=== PATIENT | male | born 1975 | race Caucasian/White ===

== ENCOUNTER 2019-04-14 15:54 | Emergency (ER) | payer BC ==
[~2019-04-14] VITALS: Ht 185.4 cm; Wt 170.1 kg
[2019-04-14] MEDS ORDERED: BUPROPION XL150 M1 PO (16:38)
[2019-04-14] MEDS ORDERED: LEVSOD125 PO (16:39)
[2019-04-14 16:46] LABS: Alanine Aminotransfer (ALT/SGP 59 U/L (12-78); Albumin, Blood 3.6 g/dL (3.4-5.0); Albumin/Globulin Ratio 0.9 (0.8-1.8); Alk Phos 73 U/L (50-136); Anion Gap 7 mmol/L (6-16); Aspartate Aminotrans (AST/SGOT 26 U/L (12-37); Bilirubin, Total 0.3 mg/dL (0.1-1.0); Blood Urea Nitrogen 14 mg/dL (8-24); Bun/Creatinine Ratio 17.3 (12.0-20.0); CO2, Blood 25 mmol/L (21-32); Chloride, Blood 109 mmol/L (98-108); Creatinine, Blood 0.81 mg/dL (0.60-1.20); Globulin, Blood 3.8 g/dL (2.2-4.0); Glomerular Filtration Rate >60 (60-); Glucose, Blood 110 mg/dL (70-99); Potassium, Blood 4.1 mmol/L (3.5-5.5); Sodium, Blood 141 mmol/L (136-145); Total Protein, Blood 7.4 g/dL (6.4-8.2)
[2019-04-14 16:47] LABS: BASOPHILS ABSOLUTE AUTO 0.06 K/mm3 (0.00-0.23); BASOPHILS PERCENT AUTO 1 % (0-2); EOSINOPHILS ABSOLUTE AUTO 0.23 K/mm3 (0.00-0.68); EOSINOPHILS PERCENT AUTO 3 % (0-6); Hematocrit 44.2 % (37.0-53.0); Hemoglobin 13.8 g/dL (13.5-17.5); IMMATURE GRAN ABSOLUTE AUTO 0.05 K/mm3 (0.00-0.10); IMMATURE GRAN PERCENT AUTO 1 % (0-1); LYMPHOCYTES ABSOLUTE AUTO 1.73 K/mm3 (0.84-5.20); LYMPHOCYTES PERCENT AUTO 20 % (21-46); MONOCYTES ABSOLUTE AUTO 0.87 K/mm3 (0.16-1.47); MONOCYTES PERCENT AUTO 10 % (4-13); Mean Corpuscular HGB 28.5 pg (26.0-34.0); Mean Corpuscular HGB Conc 31.2 g/dL (31.5-36.5); Mean Corpuscular Volume 91 fL (80-100); Mean Platelet Volume 9.4 fL (9.1-12.4); NEUTROPHILS ABSOLUTE AUTO 5.67 K/mm3 (1.96-9.15); NEUTROPHILS PERCENT AUTO 66 % (41-73); Platelet Count 322 K/mm3 (150-400); RDW Coefficient Variation 13.9 % (11.7-14.2); Red Blood Cell Count 4.84 M/mm3 (4.30-5.90); White Blood Cell Count 8.61 K/mm3 (4.00-11.30)
== END 2019-04-14 18:01 | disposition home or self-care (01) ==
LOC: ER 15:54
PROVIDERS: Physician Assistant
DX: R51 Headache (principal); M54.9 Dorsalgia, unspecified; G89.29 Other chronic pain; E66.01 Morbid (severe) obesity due to excess calories; Z68.42 Body mass index [BMI] 45.0-49.9, adult; F17.210 Nicotine dependence, cigarettes, uncomplicated
CPT/HCPCS: 70450; 80053; 85025; 96374; 96375; 99284-25; J0780; J1170; J1200; J1885

== ENCOUNTER → 2020-03-13 | Outpatient (CLI) | payer BC ==
[~2020-03-13] MED LIST: BUPROPION XL150 M1 PO; DESVENLAFAXINE100 M3 PO; LAMICTAL200 MG PO; LEVSOD125 PO; LISINOPRIL2.5 MG PO; LITHIUM CARBON300 M5 PO; METFORMIN HCL500 M3 PO; NAPR220 PO; OMEP20ER PO; Synthroid300 MCG PO
== END | disposition home or self-care (01) ==
LOC: LAB SHORT 09:00 → LAB 09:00 → LAB FUT 03-10 15:35
DX: R10.13 Epigastric pain (principal)
CPT/HCPCS: 87338

== ENCOUNTER 2020-03-25 14:33 | Inpatient (IN) | payer BC ==
[~2020-03-25] VITALS: Ht 185.4 cm; Wt 168.8 kg
[2020-03-25 15:23] LABS: BASOPHILS ABSOLUTE AUTO 0.18 K/mm3 (0.00-0.23); BASOPHILS PERCENT AUTO 1 % (0-2); EOSINOPHILS ABSOLUTE AUTO 0.89 K/mm3 (0.00-0.68); EOSINOPHILS PERCENT AUTO 6 % (0-6); Hematocrit 43.1 % (37.0-53.0); Hemoglobin 13.5 g/dL (13.5-17.5); IMMATURE GRAN ABSOLUTE AUTO 0.92 K/mm3 (0.00-0.10); IMMATURE GRAN PERCENT AUTO 6 % (0-1); LYMPHOCYTES PERCENT AUTO 11 % (21-46); MONOCYTES ABSOLUTE AUTO 1.12 K/mm3 (0.16-1.47); MONOCYTES PERCENT AUTO 7 % (4-13); Mean Corpuscular HGB 27.5 pg (26.0-34.0); Mean Corpuscular HGB Conc 31.3 g/dL (31.5-36.5); Mean Corpuscular Volume 88 fL (80-100); NEUTROPHILS PERCENT AUTO 69 % (41-73); RDW Coefficient Variation 14.3 % (11.7-14.2); RDW Standard Deviation 45.9 fL (35.1-46.3); Red Blood Cell Count 4.91 M/mm3 (4.30-5.90); White Blood Cell Count 15.31 K/mm3 (4.00-11.30)
[2020-03-25 15:44] LABS: Mean Platelet Volume 9.4 fL (9.1-12.4); Platelet Count 438 K/mm3 (150-400)
[2020-03-25 16:12] LABS: Alanine Aminotransfer (ALT/SGP 39 U/L (12-78); Albumin, Blood 2.3 g/dL (3.4-5.0); Albumin/Globulin Ratio 0.5 (0.8-1.8); Alk Phos 88 U/L (50-136); Anion Gap 5 mmol/L (6-16); Aspartate Aminotrans (AST/SGOT 28 U/L (12-37); Bilirubin, Total 0.3 mg/dL (0.1-1.0); Blood Urea Nitrogen 9 mg/dL (8-24); Bun/Creatinine Ratio 12.5 (12.0-20.0); CO2, Blood 29 mmol/L (21-32); Calcium, Blood 8.7 mg/dL (8.5-10.1); Chloride, Blood 106 mmol/L (98-108); Creatinine, Blood 0.72 mg/dL (0.60-1.20); Globulin, Blood 4.6 g/dL (2.2-4.0); Glomerular Filtration Rate >60 (60-); Glucose, Blood 142 mg/dL (70-99); Potassium, Blood 3.6 mmol/L (3.5-5.5); Sodium, Blood 140 mmol/L (136-145); Total Protein, Blood 6.9 g/dL (6.4-8.2)
--- NOTE | 2020-03-26 00:45 | NUR ---
REPORT RECEIVED FROM MAYRAED RN. PT TRANSPORTED TO MEDICAL FLOOR VIA GURNEY, AMBULATED SELF TO BED, NO S/S ACUTE DISTRESS NOTED. RESPS E/U. ORIENTED TO ROOM AND UNIT. PT DENIES NEEDS AT THIS TIME. CALL LIGHT, POSSESSIONS IN REACH, WCTM.
--- NOTE | 2020-03-26 07:10 | NUR ---
SHIFT SUMMARY PT RESTING COMFORTABLY, NO S/S ACUTE DISTRESS NOTED. WAS MONITORED EVERY 1-2 HOURS WITH NEEDS MET. VS REVIEWED, WNL. PT DENIES N/V, ABD PAIN, BUT REPORTS BACK PAIN. MEDICATED PER EMAR WITH EFFECTIVE RELIEF. TOLERATED CLEAR LIQUID DIET WELL. INDEPENDENT IN ROOM, AMBULATES HALLS PERIODICALLY. DENIES NEEDS AT THIS TIME. CALL LIGHT, POSSESSIONS IN REACH, REPORT GIVEN TO DARREL MARCELO.
--- NOTE | 2020-03-26 16:50 | NUR ---
PT HAS COMPLAINED OF PAIN TO ABDOMEN USUALLY AFTER MEALS. MEDICATED PER EMAR. PT TO HAVE CLEAR LIQUIDS AT THIS TIME. NO ACUTE CHAGNES. CALL LIGHT WITHIN REACH.
--- NOTE | 2020-03-26 23:24 | NUR ---
03/26/200 Pt came out in [facility] and c/o severe abdOMINAL PAIN,NAUSEA, AND "SCARED TO ". CONTINOUS PULSE OX REAPPLIED AND HR= 86 WITH O2 SAT= 95%. C/O "MY HEART FEELS LIKE IT'S RACING". RN REASSURED PT AND SHOWN HIM THE PULSE OX. READINGS. TOO SOON FOR MORE PAIN MEDS. RN PAGED CHAINSTITCH TUNNEL ELASTIC OPERATOR MD ABOUT ABOVE EVENTS. DR ODELL CAME AND EVALUATED PT AT 2242. SEE ORDERS FOR MEDS AND SEE MAR FOR MEDS GIVEN. PT SITTING UP IN LOUNGE CHAIR. EARLIER PT HAD DRANK OVER 700 ML OF WATER "BECAUSE I WAS THIRSTY." RN ENCOURAGED PT NOT TO DRINK ANYTHING FOR AWHILE TO SEE IF HE FEELS BETTER. VITALS RECHECKED AFTER MEDS GIVEN. BP BETTER.
--- NOTE | 2020-03-27 01:19 | NUR ---
03/27/20 0110 RN CALLED FOR DIFF. PAIN MED ORDER. PAIN DOWN TO "2" AFTER MEDICATED WITH DILAUDID 2 MG IV FOR BACK PAIN.
--- NOTE | 2020-03-27 07:30 | NUR ---
03/27/20 0640 MEDICATED FOR BACK/ABDOMEN DISCOMFORT PER JUN. DENIES ANY NAUSEA. SITTING UP IN LOUNGE CHAIR THIS AM READING. STATES HE GOT SOME SLEEP AFTER NEW PAIN MED WAS GIVEN EARLIER. SEE PREVIOUS NOTES. VITALS BETTER THIS AM.
[2020-03-27 08:16] LABS: BASOPHILS ABSOLUTE AUTO 0.09 K/mm3 (0.00-0.23); BASOPHILS PERCENT AUTO 0 % (0-2); EOSINOPHILS ABSOLUTE AUTO 0.69 K/mm3 (0.00-0.68); EOSINOPHILS PERCENT AUTO 3 % (0-6); Hematocrit 40.3 % (37.0-53.0); Hemoglobin 12.4 g/dL (13.5-17.5); IMMATURE GRAN ABSOLUTE AUTO 0.57 K/mm3 (0.00-0.10); IMMATURE GRAN PERCENT AUTO 3 % (0-1); LYMPHOCYTES ABSOLUTE AUTO 1.13 K/mm3 (0.84-5.20); LYMPHOCYTES PERCENT AUTO 6 % (21-46); MONOCYTES ABSOLUTE AUTO 1.17 K/mm3 (0.16-1.47); MONOCYTES PERCENT AUTO 6 % (4-13); Mean Corpuscular HGB 27.7 pg (26.0-34.0); Mean Corpuscular HGB Conc 30.8 g/dL (31.5-36.5); Mean Corpuscular Volume 90 fL (80-100); Mean Platelet Volume 8.8 fL (9.1-12.4); NEUTROPHILS ABSOLUTE AUTO 16.69 K/mm3 (1.96-9.15); NEUTROPHILS PERCENT AUTO 82 % (41-73); Platelet Count 414 K/mm3 (150-400); RDW Standard Deviation 47.1 fL (35.1-46.3); Red Blood Cell Count 4.47 M/mm3 (4.30-5.90); White Blood Cell Count 20.34 K/mm3 (4.00-11.30)
--- NOTE | 2020-03-27 17:45 | NUR ---
NO ACUTE CHANGES. PT IS NOW TOLERATING WATER AND ICE CHIPS. HE IS ALERT AND ORIENTED AND ABLE TO EXPRESS ANY NEEDS. PT SHOWERED THIS SHIFT. CALL LIGHT WITHIN REACH.
[2020-03-28 05:39] LABS: BASOPHILS PERCENT AUTO 1 % (0-2); EOSINOPHILS ABSOLUTE AUTO 0.69 K/mm3 (0.00-0.68); EOSINOPHILS PERCENT AUTO 3 % (0-6); Hematocrit 43.6 % (37.0-53.0); Hemoglobin 13.3 g/dL (13.5-17.5); IMMATURE GRAN ABSOLUTE AUTO 0.46 K/mm3 (0.00-0.10); IMMATURE GRAN PERCENT AUTO 2 % (0-1); LYMPHOCYTES ABSOLUTE AUTO 1.24 K/mm3 (0.84-5.20); LYMPHOCYTES PERCENT AUTO 6 % (21-46); MONOCYTES PERCENT AUTO 5 % (4-13); Mean Corpuscular HGB 27.4 pg (26.0-34.0); Mean Corpuscular HGB Conc 30.5 g/dL (31.5-36.5); Mean Corpuscular Volume 90 fL (80-100); Mean Platelet Volume 8.7 fL (9.1-12.4); NEUTROPHILS PERCENT AUTO 83 % (41-73); Platelet Count 441 K/mm3 (150-400); RDW Standard Deviation 46.3 fL (35.1-46.3); Red Blood Cell Count 4.85 M/mm3 (4.30-5.90); White Blood Cell Count 20.99 K/mm3 (4.00-11.30)
--- NOTE | 2020-03-28 06:11 | NUR ---
SHIFT SUMMARY- PT. A&O, INDEP IN ROOM. C/O PAIN TO MID ABD 10/17, MEDICATED SEVERAL TIMES T/O THE NIGHT WITH GOOD EFFECT. PT. ON ICE CHIPS AND SIPS OF WATER, TOLERATING WELL. C/O OCCASIONAL DISCOMFORT/PAIN IF DRINKS TOO MUCH WATER. SLEPT ON/OFF DURING THE NIGHT, NO APPARENT DISTRESS NOTED. VSS. CALL LIGHT WITHIN REACH AND SIDE RAILS UPX2. WILL CONT TO MONITOR.
--- NOTE | 2020-03-28 19:16 | NUR ---
SHIFT SUMMARY- PT IS A/O, PLESANT AND COOPERATIVE. HE IS HAVING ABDOMINAL PAIN AND IS BEING TREATED PER MAR. HE WAS SWITCHED TO D5 NS. HE IS DRINKING FLUIDS AND REPORTS THAT HE IS EXPERIENCING PAIN WITH IT. HIS VISITED THIS AFTERNOON. HIS BED IS IN THE LOW POSITION AND CALL LIGHT IS WITHIN REACH.
--- NOTE | 2020-03-29 04:56 | NUR ---
SHIFT SUMMARY- NO ACUTE EVENTS OVERNIGHT. PT. C/O PAIN T/O THE NIGHT, MEDICATED SEVERAL TIMES THIS SHIFT WITH MINIMAL EFFECT. SLEPT ON/OFF DURING THE NIGHT, SPENT MOST OF THE NIGHT UP IN THE CHAIR. PT. ONLY DRINKING WATER AND ICE CHIPS AT THIS TIME, TOLERATING WELL. DENIED ANY OTHER NEEDS. CALL LIGHT WITHIN REACH AND SIDE RAILS UPX2. WILL CONT TO MONITOR.
[2020-03-29 04:57] LABS: BASOPHILS PERCENT AUTO 1 % (0-2); EOSINOPHILS ABSOLUTE AUTO 0.54 K/mm3 (0.00-0.68); EOSINOPHILS PERCENT AUTO 3 % (0-6); Hematocrit 42.3 % (37.0-53.0); Hemoglobin 12.8 g/dL (13.5-17.5); IMMATURE GRAN ABSOLUTE AUTO 0.35 K/mm3 (0.00-0.10); IMMATURE GRAN PERCENT AUTO 2 % (0-1); LYMPHOCYTES ABSOLUTE AUTO 1.31 K/mm3 (0.84-5.20); LYMPHOCYTES PERCENT AUTO 8 % (21-46); MONOCYTES ABSOLUTE AUTO 1.07 K/mm3 (0.16-1.47); MONOCYTES PERCENT AUTO 6 % (4-13); Mean Corpuscular HGB 27.6 pg (26.0-34.0); Mean Corpuscular HGB Conc 30.3 g/dL (31.5-36.5); Mean Corpuscular Volume 91 fL (80-100); NEUTROPHILS ABSOLUTE AUTO 14.04 K/mm3 (1.96-9.15); NEUTROPHILS PERCENT AUTO 81 % (41-73); Platelet Count 430 K/mm3 (150-400); RDW Coefficient Variation 14.1 % (11.7-14.2); RDW Standard Deviation 47.7 fL (35.1-46.3); Red Blood Cell Count 4.64 M/mm3 (4.30-5.90); White Blood Cell Count 17.41 K/mm3 (4.00-11.30)
[2020-03-29 05:23] LABS: Anion Gap 6 mmol/L (6-16); Blood Urea Nitrogen 4 mg/dL (8-24); Bun/Creatinine Ratio 5.6 (12.0-20.0); CO2, Blood 28 mmol/L (21-32); Calcium, Blood 8.9 mg/dL (8.5-10.1); Chloride, Blood 105 mmol/L (98-108); Creatinine, Blood 0.71 mg/dL (0.60-1.20); Glomerular Filtration Rate >60 (60-); Glucose, Blood 126 mg/dL (70-99); Potassium, Blood 3.7 mmol/L (3.5-5.5); Sodium, Blood 139 mmol/L (136-145)
--- NOTE | 2020-03-29 19:11 | NUR ---
SHIFT SUMMARY- PT IS A/O, PLESANT AND COOPERATIVE. HE IS ON WATER SIPS AND ICE CHIPS. HE IS REPORTING FEELING SOMEWHAT BETTER THAN YESTERDAY. HE IS RECIEVING PAIN MEDICATION NEEDED. HE SLEPT INTERMITENTLY THROUGHOUT THIS SHIFT. HIS WAS AT BEDSIDE. HE IS RECIEVING MEDICATIONS PRN DIARRHEA. HIS BED IS IN THE LOW POSITION AND CALL LIGHT IS WITHIN REACH.
[2020-03-30 04:42] LABS: BASOPHILS ABSOLUTE AUTO 0.08 K/mm3 (0.00-0.23); BASOPHILS PERCENT AUTO 1 % (0-2); EOSINOPHILS ABSOLUTE AUTO 0.51 K/mm3 (0.00-0.68); EOSINOPHILS PERCENT AUTO 3 % (0-6); Hematocrit 39.9 % (37.0-53.0); Hemoglobin 12.1 g/dL (13.5-17.5); IMMATURE GRAN ABSOLUTE AUTO 0.25 K/mm3 (0.00-0.10); IMMATURE GRAN PERCENT AUTO 2 % (0-1); LYMPHOCYTES ABSOLUTE AUTO 1.41 K/mm3 (0.84-5.20); LYMPHOCYTES PERCENT AUTO 9 % (21-46); MONOCYTES ABSOLUTE AUTO 1.04 K/mm3 (0.16-1.47); MONOCYTES PERCENT AUTO 7 % (4-13); Mean Corpuscular HGB 27.5 pg (26.0-34.0); Mean Corpuscular HGB Conc 30.3 g/dL (31.5-36.5); Mean Corpuscular Volume 91 fL (80-100); NEUTROPHILS ABSOLUTE AUTO 11.64 K/mm3 (1.96-9.15); NEUTROPHILS PERCENT AUTO 78 % (41-73); Platelet Count 451 K/mm3 (150-400); RDW Standard Deviation 47.5 fL (35.1-46.3); White Blood Cell Count 14.93 K/mm3 (4.00-11.30)
--- NOTE | 2020-03-30 05:49 | NUR ---
SHIFT SUMMARY- PT. PAINFUL DURING THE NIGHT, MEDICATED MULTIPLE TIMES THIS SHIFT FOR 7/10 PAIN. REPORTED SOME RELIEF. BP SLIGHTLY ELEVATED LAST NIGHT. TX'D WITH PRN HYDRALAZINE, NOTED IMPROVEMENT OF BP THIS AM. PT. RESTED QUIETLY DURING THE NIGHT, NO APPARENT DISTRESS NOTED. CONTS ON SIPS OF WATER AND ICE CHIPS. STATED WILL ATTEMPT CL TODAY. NO OTHER NEEDS AT THIS TIME. CALL LIGHT WITHIN REACH AND SIDE RAILS UPX2. WILL CONT TO MONITOR.
--- NOTE | 2020-03-30 18:38 | NUR ---
PT PAIN MEDS CHANGED FROM IV TO PO DILAUDID, DIET INCREASED FROM CHIPS AND SIPS TO CLEAR LIQUIDS. STILL C/O OF MOD ABD PAIN, PLAN IS TO BE DISCHARGED TOMORROW IF IMPROVEMENT CONTINUES. NO ACUTE CHANGES NOTED THIS SHIFT, WILL CONTINUE TO MONITOR AND REPORT TO ONCOMING RN.
--- NOTE | 2020-03-31 04:08 | NUR ---
SUMMARY PT REPORTED A EPISODE OF PAIN AND WAS TX PER EMAR. PT HAS BEEN SLEEPING T/O SHIFT. PT CURRENTLY SLEEPING AND BREATHING EASY. CALL LIGHT IN REACH.
[2020-03-31 05:24] LABS: BASOPHILS ABSOLUTE AUTO 0.09 K/mm3 (0.00-0.23); BASOPHILS PERCENT AUTO 1 % (0-2); EOSINOPHILS ABSOLUTE AUTO 0.62 K/mm3 (0.00-0.68); EOSINOPHILS PERCENT AUTO 5 % (0-6); Hematocrit 42.8 % (37.0-53.0); Hemoglobin 12.6 g/dL (13.5-17.5); IMMATURE GRAN ABSOLUTE AUTO 0.15 K/mm3 (0.00-0.10); IMMATURE GRAN PERCENT AUTO 1 % (0-1); LYMPHOCYTES ABSOLUTE AUTO 1.32 K/mm3 (0.84-5.20); LYMPHOCYTES PERCENT AUTO 11 % (21-46); MONOCYTES ABSOLUTE AUTO 0.94 K/mm3 (0.16-1.47); MONOCYTES PERCENT AUTO 8 % (4-13); Mean Corpuscular HGB 27.1 pg (26.0-34.0); Mean Corpuscular HGB Conc 29.4 g/dL (31.5-36.5); Mean Corpuscular Volume 92 fL (80-100); Mean Platelet Volume 9.6 fL (9.1-12.4); NEUTROPHILS ABSOLUTE AUTO 9.04 K/mm3 (1.96-9.15); NEUTROPHILS PERCENT AUTO 74 % (41-73); Platelet Count 409 K/mm3 (150-400); RDW Coefficient Variation 14.3 % (11.7-14.2); RDW Standard Deviation 48.1 fL (35.1-46.3); Red Blood Cell Count 4.65 M/mm3 (4.30-5.90); White Blood Cell Count 12.16 K/mm3 (4.00-11.30)
[2020-03-31] MEDS ORDERED: HYDMOR2 PO (11:08)
[2020-03-31] MEDS ORDERED: PROM25 PO (11:10)
[2020-03-31] MEDS ORDERED: LOPE2C PO (11:10)
--- NOTE | 2020-03-31 16:45 | NUR ---
DISCHARGE DISCHARGE INSTRUCTIONS, MEDICATION LIST AND FOLLOW UP APPOINTMENT REVIEWED WITH PT AND HIS SPOUSE. QUESTIONS/CONCERNS ANSWERED. BOTH VERBALLY INDICATED UNDERSTANDING OF ALL INSTRUCTIONS RECEIVED. ESCORTED OUT VIA W/C BY CHYNA
== END 2020-03-31 16:30 | disposition home or self-care (01) | DRG 439 ==
LOC: ER 14:33 → MEDS 14:34
PROVIDERS: Internal Medicine; Physician Assistant; ADMIT Internal Medicine
DX: K85.90 Acute pancreatitis without necrosis or infection, unspecified (principal); Z68.42 Body mass index [BMI] 45.0-49.9, adult; E66.2 Morbid (severe) obesity with alveolar hypoventilation; I10 Essential (primary) hypertension; E11.9 Type 2 diabetes mellitus without complications; K21.9 Gastro-esophageal reflux disease without esophagitis; F41.9 Anxiety disorder, unspecified; G47.00 Insomnia, unspecified; E89.0 Postprocedural hypothyroidism; F17.210 Nicotine dependence, cigarettes, uncomplicated
CPT/HCPCS: 36415; 71045; 74177; 80048; 80053; 82947; 83690; 85025; 93005; 93010; 94760; 94762; 96372; 96374-59; 96375; 96376; 99285-25; G0378; J1170; J1650; J2270; J2405; J3010; J7030; J7042; J7120; Q9967

== ENCOUNTER 2021-03-19 07:35 | Emergency (ER) | payer BC ==
[~2021-03-19] VITALS: Ht 185.4 cm; Wt 165.1 kg
[~2021-03-19 07:35] MED LIST changes: +HYDMOR2 PO; +LOPE2C PO; +PROM25 PO
[2021-03-19] MEDS ORDERED: VITAMIN D3-ALO1 EACH PO (08:09)
[2021-03-19] MEDS ORDERED: GLIM4 PO (08:09)
[2021-03-19] MEDS ORDERED: CYCL10 PO (08:10)
[2021-03-19] MEDS ORDERED: RISP2 (08:10)
[2021-03-19] MEDS ORDERED: SITA100T2 PO (08:10)
[2021-03-19 09:48] LABS: BASOPHILS ABSOLUTE AUTO 0.08 K/mm3 (0.00-0.23); BASOPHILS PERCENT AUTO 1 % (0-2); EOSINOPHILS ABSOLUTE AUTO 0.18 K/mm3 (0.00-0.68); EOSINOPHILS PERCENT AUTO 2 % (0-6); Hematocrit 44.2 % (37.0-53.0); Hemoglobin 13.8 g/dL (13.5-17.5); IMMATURE GRAN ABSOLUTE AUTO 0.05 K/mm3 (0.00-0.10); IMMATURE GRAN PERCENT AUTO 1 % (0-1); LYMPHOCYTES ABSOLUTE AUTO 1.34 K/mm3 (0.84-5.20); LYMPHOCYTES PERCENT AUTO 12 % (21-46); MONOCYTES ABSOLUTE AUTO 0.84 K/mm3 (0.16-1.47); MONOCYTES PERCENT AUTO 8 % (4-13); Mean Corpuscular HGB 27.5 pg (26.0-34.0); Mean Corpuscular HGB Conc 31.2 g/dL (31.5-36.5); Mean Corpuscular Volume 88 fL (80-100); Mean Platelet Volume 9.3 fL (9.1-12.4); NEUTROPHILS ABSOLUTE AUTO 8.38 K/mm3 (1.96-9.15); NEUTROPHILS PERCENT AUTO 77 % (41-73); Platelet Count 332 K/mm3 (150-400); RDW Standard Deviation 45.3 fL (35.1-46.3); Red Blood Cell Count 5.01 M/mm3 (4.30-5.90); White Blood Cell Count 10.87 K/mm3 (4.00-11.30)
[2021-03-19 10:03] LABS: Alanine Aminotransfer (ALT/SGP 40 U/L (12-78); Albumin, Blood 3.5 g/dL (3.4-5.0); Albumin/Globulin Ratio 0.9 (0.8-1.8); Alk Phos 70 U/L (50-136); Anion Gap 6 mmol/L (6-16); Aspartate Aminotrans (AST/SGOT 16 U/L (12-37); Bilirubin, Total 0.3 mg/dL (0.1-1.0); Blood Urea Nitrogen 13 mg/dL (8-24); Bun/Creatinine Ratio 18.5 (12.0-20.0); CO2, Blood 27 mmol/L (21-32); Calcium, Blood 9.9 mg/dL (8.5-10.1); Chloride, Blood 104 mmol/L (98-108); Glomerular Filtration Rate >60 (60-); Glucose, Blood 233 mg/dL (70-99); Potassium, Blood 4.1 mmol/L (3.5-5.5); Sodium, Blood 137 mmol/L (136-145); Total Protein, Blood 7.5 g/dL (6.4-8.2)
[2021-03-19] MEDS ORDERED: KETO10 PO (12:01)
[2021-03-19] MEDS ORDERED: DIBU30TO TOP (12:01)
== END 2021-03-19 12:06 | disposition home or self-care (01) ==
LOC: ER 07:35
PROVIDERS: Physician Assistant
DX: G54.4 Lumbosacral root disorders, not elsewhere classified (principal); K62.89 Other specified diseases of anus and rectum; E11.9 Type 2 diabetes mellitus without complications; I10 Essential (primary) hypertension; Z87.891 Personal history of nicotine dependence; Z88.1 Allergy status to other antibiotic agents; Z79.899 Other long term (current) drug therapy
CPT/HCPCS: 36415; 72192; 80053; 85025; 99283-25; A9270

== ENCOUNTER 2021-07-06 07:45 | Day surgery (SDC) | payer BC ==
[~2021-07-06] VITALS: Ht 185.4 cm; Wt 168.9 kg
[~2021-07-06 07:45] MED LIST changes: +CYCL10 PO; +DIBU30TO TOP; +GLIM4 PO; +KETO10 PO; +RISP2; +SITA100T2 PO; +VITAMIN D3-ALO1 EACH PO
--- NOTE | 2021-07-06 08:26 | NUR ---
07/06/21 0826 Brissa Miller TRY RIGHT HAND BLEW.
--- NOTE | 2021-07-06 09:14 | NUR ---
07/06/21 [address] RODRIGUEZ
== END 2021-07-06 09:54 | disposition home or self-care (01) ==
LOC: ORSCSDS 07:45
PROVIDERS: Student in an Organized Health Care Education/Training Program
PROC: 0DBN8ZX Excision of Sigmoid Colon, Via Natural or Artificial Opening Endoscopic, Diagnostic (ICD-10-PCS; principal; 2021-07-06 09:15)
DX: K62.5 Hemorrhage of anus and rectum (principal); K63.5 Polyp of colon; K60.2 Anal fissure, unspecified; K64.8 Other hemorrhoids; G47.33 Obstructive sleep apnea (adult) (pediatric); I10 Essential (primary) hypertension; E11.9 Type 2 diabetes mellitus without complications; E03.9 Hypothyroidism, unspecified; Z79.84 Long term (current) use of oral hypoglycemic drugs; Z79.899 Other long term (current) drug therapy; K57.30 Diverticulosis of large intestine without perforation or abscess without bleeding
CPT/HCPCS: 82947; 88305; A9270; J2704; J7120

== ENCOUNTER → 2022-02-02 | Outpatient (CLI) | payer BC | LOC: LAB 15:59 → LAB SHORT 15:59 | DX: L02.222 Furuncle of back [any part, except buttock and flank] (principal); L02.223 Furuncle of chest wall; L02.02 Furuncle of face; D48.5 Neoplasm of uncertain behavior of skin; L21.8 Other seborrheic dermatitis; D22.5 Melanocytic nevi of trunk | CPT/HCPCS: 87070; 87205 ==

== ENCOUNTER 2022-10-07 10:31 | Day surgery (SDC) | payer BC ==
[~2022-10-07] VITALS: Ht 185.4 cm; Wt 162.2 kg
[~2022-10-07 10:31] MED LIST changes: +ONDA4ODT MM
[2022-10-07] MEDS ORDERED: CENTRUM SILVER1 EAC2 (11:31)
[2022-10-07] MEDS ORDERED: PIOG30 (11:31)
[2022-10-07] MEDS ORDERED: DOCU100 (11:32)
[2022-10-07] MEDS ORDERED: DIAZ2 (11:32)
[2022-10-07] MEDS ORDERED: TRULICITY0.75 MG/01 (11:33)
[2022-10-07 13:08] VITALS: BP 119/82
== END 2022-10-07 13:15 | disposition home or self-care (01) ==
LOC: ORSCSDS 10:31
PROVIDERS: Student in an Organized Health Care Education/Training Program
PROC: 0DBP8ZX Excision of Rectum, Via Natural or Artificial Opening Endoscopic, Diagnostic (ICD-10-PCS; principal; 2022-10-07 12:15)
DX: Z86.010 Personal history of colon polyps (principal); K62.1 Rectal polyp; K57.30 Diverticulosis of large intestine without perforation or abscess without bleeding; K62.89 Other specified diseases of anus and rectum; I10 Essential (primary) hypertension; E11.9 Type 2 diabetes mellitus without complications; Z87.891 Personal history of nicotine dependence; Z85.850 Personal history of malignant neoplasm of thyroid; Z79.899 Other long term (current) drug therapy; G47.33 Obstructive sleep apnea (adult) (pediatric); E66.01 Morbid (severe) obesity due to excess calories; Z68.43 Body mass index [BMI] 50.0-59.9, adult; Z79.84 Long term (current) use of oral hypoglycemic drugs; F31.9 Bipolar disorder, unspecified
CPT/HCPCS: 82947; 88305; J2250; J2704; J7120